=== PATIENT | male | born 1990 | race Caucasian/White ===

== ENCOUNTER → 2016-12-24 | Outpatient (CLI) | payer BC ==
[~2016-12-24] MED LIST: BENZ1TAB2 PO; DPKSR/500 PO; HALO5TAB PO; OLAN-111 PO; ZYP20 PO
[2016-12-24 17:06] LABS: BASO % 0.4 %; BASO ABS # 0.02 K/uL (0-0.2); COMPLETE YES; EOS % 1.8 %; LYMPH % 40.6 %; LYMPH ABS # 2.31 K/uL (1.2-3.4); MEAN CELL VOLUME 88.7 fL (80-100); MEAN CORPUSCULAR HEMOGLOBIN 30.2 pg (25-34); MEAN CORPUSCULAR HGB CONC 34.1 g/dl (32-36); MEAN PLATELET VOLUME 10.2 fL (7.4-10.4); MONO % 8.1 %; NEUT % 49.1 %; PLATELET COUNT 275 K/uL (130-400); RED BLOOD COUNT 4.96 M/uL (4.7-6.1); WHITE BLOOD COUNT 5.69 K/uL (4.8-10.8)
[2016-12-27 02:33] LABS: CHLAMYDIA TRACH RNA*** NOT DETECTED (NOT DETECTED); GC (NEIS GONORRHOEAE)RNA** NOT DETECTED (NOT DETECTED); HERPES SIMPLEX AB IGG-1 >5.00; HERPES SIMPLEX AB IGG-2 0.26
== END | disposition home or self-care (01) ==
LOC: C.LABBC 13:21
PROVIDERS: ATTEND Family Medicine
DX: Z00.00 Encounter for general adult medical examination without abnormal findings (principal); E03.9 Hypothyroidism, unspecified; D64.9 Anemia, unspecified

== ENCOUNTER 2022-11-12 00:16 | Inpatient (IN) ==
--- NOTE | 2022-11-12 00:30 | Emergency Department Note ---
Impression & Plan Bipolar I disorder with nazanin Admit ED Provider Note HPI: The patient is a 32-year-old male with history of bipolar disorder, who presents to the emergency department for psychiatric evaluation. Patient presents via private vehicle, he states that his parents were concerned that he was going through a manic episode. Patient states he lives in his own house with 2 r oommates and his parents came to see him this evening and had concerns and therefore brought him to the ED for assessment. On my initial evaluation the patient is alone, he tells me he is not having any suicidal or homicidal thoughts, he answers my questions appropriately but does exhibit some pressured speech. He tells me he is sleeping and he is unsure why his parents are concerned, however at times he does admit to some need for inpatient psychiatric care. He states he is taking his medications as prescribed but he is unable to tell me what they are. Patient is otherwise in no acute distress on arrival. ROS: -Psychiatric: Concern for manic episode *10 point review systems was conducted and is otherwise negative unless stated above *Outpatient medications and allergy history reviewed PE: General: Alert HEENT: Normocephalic, trachea midline Eyes: Extraocular eye movement is intact, no scleral erythema Pulmonary: Clear to auscultation bilaterally, no wheezing Cardio: Regular rate and rhythm GI: Abdomen is soft, nontender : No suprapubic tenderness MSK: No evidence of trauma or malformation of the extremities, no edema Skin: No evidence of rash Neuro: Alert, no focal deficits Psychiatric: Cooperative Medical Decision Making: Patient is cooperative on arrival here to the ED, he is displayed some manic behavior recently and parents were concerned that he might need to be evaluated as an inpatient psychiatric patient. On arrival here to the ED the patient is in no acute distress, he states he would be agreeable to inpatient care. He denies any suicidal or homicidal ideations. Medical clearance lab work was obtained, patient does have some mild hyponatremia and a mild anemia but otherwise no critical abnormalities are noted. He is hemodynamically stable here in the ED and on my reassessment he is resting comfortably. Alcohol level is negative. Patient states he is agreeable for 201 admission, he feels that he may benefit from admission as he does admit to some manic symptoms recently although he is relatively vague with the details of this, he states he has been compliant with his medications. Bed search was initiated following medical clearance, patient was accepted at [facility] for inpatient care. Patient was transferred in stable condition for further management. Diagnosis: 1. Bipolar disorder 2. Acute nazanin Disposition: Admission to [facility]. Jordan Pack DO Emergency Medicine Past Med/Surg History Social History Smoking Status: Never smoker Preferred Language: German Feels Safe at Home: Yes Allergies Allergies Allergy/AdvReac Type Severity Reaction Status Date / Time No Known Allergies Allergy Unverified 10/25/13 15:08 Home Meds Home Medications Medication Instructions Recorded Confirmed buspirone 5 mg tablet 5 mg PO BID 11/12/22 11/12/22 levothyroxine 50 mcg tablet 50 mcg PO DAILY 11/12/22 11/12/22 lorazepam 0.5 mg tablet 0.5 mg PO HS PRN Anxiety 11/12/22 11/12/22 olanzapine 5 mg tablet 5 mg PO DAILY 11/12/22 11/12/22 Previous Rx's Medication Instructions Recorded Benztropine Mesylate (Cogentin) 1 mg PO BID PRN #20 tabs 11/08/13 Benztropine Mesylate (Cogentin) 2 mg PO BID 30 days #0 tabs 11/08/13 DIVALPROEX SODIUM (Depakote 1,500 mg PO HS 30 days ##0 11/08/13 Etended-Release) HALOPERIDOL (HALDOL) 5 mg PO HS 30 days #0 tabs 11/08/13 OLANZAPINE (ZYPREXA) 20 mg PO HS 30 days #0 tabs 11/08/13 Olanzapine (Zyprexa) 5 mg PO QAM 30 days #0 tabs 11/08/13 Results & Data (ED) Vital Signs Vital Signs - 24 hr 11/12/22 00:20 11/12/22 03:38 Temperature 36.5 C Temperature Source Temporal Artery Scan Pulse Rate 101 H Pulse Rate [Finger] 78 Pulse Rhythm [Finger] Regular Respiratory Rate 18 16 Respiratory Effort / Characteristics Non-Labored Spontaneous Respiratory Depth Normal Normal Blood Pressure 147/101 H Blood Pressure [Left Arm] 149/77 H Blood Pressure Mean 116 Blood Pressure Mean [Left Arm] 101 Pulse Oximetry 99 98 Oxygen Delivery Method Room Air Room Air Sepsis New/Unexplained Change in Mental Status N/A Sepsis Action Taken by Nursing No Action Required Laboratory Data Result diagrams: 11/12/22 00:40 11/12/22 00:40 Lab Results 11/12/22 11/12/22 11/12/22 Range/Units 00:28 00:28 00:40 WBC 9.40 (4.8-10.8) K/ul RBC 4.17 L (4.63-6.08) M/uL Hgb 12.6 L (14.0-18.0) g/dl Hct 36.3 L (40.1-51.0) % MCV 87.1 (80.0-100.0) fL MCH 30.2 (25.0-34.0) pg MCHC 34.7 (32.0-36.0) g/dL RDW Std Deviation 40.9 (36.4-46.3) fL RDW Coeff of Shaista 12.9 (11.5-14.5) % Plt Count 327 (130-400) K/uL MPV 8.9 L (9.4-12.4) fL Immature Gran % (Auto) 0.5 % Neut % (Auto) 44.9 % Lymph % (Auto) 41.6 % Mineral % (Auto) 9.5 % Eos % (Auto) 3.0 % Baso % (Auto) 0.5 % Neut # (Auto) 4.22 (1.4-6.5) K/uL Lymph # (Auto) 3.91 H (1.2-3.4) K/uL Mineral # (Auto) 0.89 H (0.24-0.82) K/uL Eos # (Auto) 0.28 (0-0.50) K/uL Baso # (Auto) 0.05 (0-0.2) K/uL Immature Gran # (Auto) 0.05 H (0.00-0.02) K/uL Sodium (136-145) mmol/L Potassium (3.5-5.1) mmol/L Chloride (98-107) mmol/L Carbon Dioxide (21-32) mmol/L Anion Gap (3-11) BUN (6-23) mg/dl Creatinine (0.6-1.4) mg/dl Est Cr Clr Drug Dosing ml/min Est GFR ( Amer) ml/min Est GFR (Non-Af Amer) ml/min BUN/Creatinine Ratio (10-20) Glucose (70-99(Fasting)) mg/dl Calcium (8.5-10.1) mg/dl Total Bilirubin (0.2-1.0) mg/dl AST (13-39) U/L ALT (7-52) U/L Alkaline Phosphatase (34-104) U/L Total Protein (6.0-8.3) gm/dl Albumin (3.4-5.0) gm/dl Globulin (2.5-4.0) gm/dl Albumin/Globulin Ratio (0.9-2) TSH (0.300-4.500) uIu/ml Urine Color Yellow Urine Appearance Clear (Clear) Urine pH 7.5 (4.5-7.5) Ur Specific [place] 1.011 (1.000-1.030) Urine Protein Negative (Negative) Urine Glucose (UA) Negative (Negative) Urine Ketones Negative (Negative) Urine Blood Negative (Negative) Urine Nitrite Negative (Negative) Urine Bilirubin Negative (Negative) Urine Urobilinogen Negative (Negative) Ur Leukocyte Esterase Negative (Negative) Salicylates (3.0-30) mg/dl Urine Opiates Screen Neg (Neg) Ur Methadone, Qual Neg (Neg) Acetaminophen (10-30) ug/ml Urine Barbiturates Neg (Neg) Ur Phencyclidine (PCP) Neg (Neg) U Amphetamin/Meth Scrn Neg (Neg) MDMA (Ecstasy) Screen Neg (Neg) U Benzodiazepines Scrn Neg (Neg) Ur Cocaine Metabolite Neg (Neg) U Marijuana (THC) Screen Neg (Neg) Ethyl Alcohol mg/dL (<10.0) mg/dl SARS-CoV-2, RNA, NAAT (NEGATIVE) 11/12/22 11/12/22 11/12/22 Range/Units 00:40 00:40 00:40 WBC (4.8-10.8) K/ul RBC (4.63-6.08) M/uL Hgb (14.0-18.0) g/dl Hct (40.1-51.0) % MCV (80.0-100.0) fL MCH (25.0-34.0) pg MCHC (32.0-36.0) g/dL RDW Std Deviation (36.4-46.3) fL RDW Coeff of Shaista (11.5-14.5) % Plt Count (130-400) K/uL MPV (9.4-12.4) fL Immature Gran % (Auto) % Neut % (Auto) % Lymph % (Auto) % Mineral % (Auto) % Eos % (Auto) % Baso % (Auto) % Neut # (Auto) (1.4-6.5) K/uL Lymph # (Auto) (1.2-3.4) K/uL Mineral # (Auto) (0.24-0.82) K/uL Eos # (Auto) (0-0.50) K/uL Baso # (Auto) (0-0.2) K/uL Immature Gran # (Auto) (0.00-0.02) K/uL Sodium 130 L (136-145) mmol/L Potassium 3.8 (3.5-5.1) mmol/L Chloride 96 L (98-107) mmol/L Carbon Dioxide 24 (21-32) mmol/L Anion Gap 10 (3-11) BUN 13 (6-23) mg/dl Creatinine 0.70 (0.6-1.4) mg/dl Est Cr Clr Drug Dosing 159.3 ml/min Est GFR ( Amer) 146.8 ml/min Est GFR (Non-Af Amer) 126.6 ml/min BUN/Creatinine Ratio 18.6 (10-20) Glucose 134 H (70-99(Fasting)) mg/dl Calcium 8.3 L (8.5-10.1) mg/dl Total Bilirubin 0.3 (0.2-1.0) mg/dl AST 22 (13-39) U/L ALT 15 (7-52) U/L Alkaline Phosphatase 45 (34-104) U/L Total Protein 6.8 (6.0-8.3) gm/dl Albumin 4.4 (3.4-5.0) gm/dl Globulin 2.4 L (2.5-4.0) gm/dl Albumin/Globulin Ratio 1.8 (0.9-2) TSH 2.662 (0.300-4.500) uIu/ml Urine Color Urine Appearance (Clear) Urine pH (4.5-7.5) Ur Specific [place] (1.000-1.030) Urine Protein (Negative) Urine Glucose (UA) (Negative) Urine Ketones (Negative) Urine Blood (Negative) Urine Nitrite (Negative) Urine Bilirubin (Negative) Urine Urobilinogen (Negative) Ur Leukocyte Esterase (Negative) Salicylates < 3.0 L (3.0-30) mg/dl Urine Opiates Screen (Neg) Ur Methadone, Qual (Neg) Acetaminophen < 3 L (10-30) ug/ml Urine Barbiturates (Neg) Ur Phencyclidine (PCP) (Neg) U Amphetamin/Meth Scrn (Neg) MDMA (Ecstasy) Screen (Neg) U Benzodiazepines Scrn (Neg) Ur Cocaine Metabolite (Neg) U Marijuana (THC) Screen (Neg) Ethyl Alcohol mg/dL (<10.0) mg/dl SARS-CoV-2, RNA, NAAT (NEGATIVE) 11/12/22 11/12/22 Range/Units 00:40 00:40 WBC (4.8-10.8) K/ul RBC (4.63-6.08) M/uL Hgb (14.0-18.0) g/dl Hct (40.1-51.0) % MCV (80.0-100.0) fL MCH (25.0-34.0) pg MCHC (32.0-36.0) g/dL RDW Std Deviation (36.4-46.3) fL RDW Coeff of Shaista (11.5-14.5) % Plt Count (130-400) K/uL MPV (9.4-12.4) fL Immature Gran % (Auto) % Neut % (Auto) % Lymph % (Auto) % Mineral % (Auto) % Eos % (Auto) % Baso % (Auto) % Neut # (Auto) (1.4-6.5) K/uL Lymph # (Auto) (1.2-3.4) K/uL Mineral # (Auto) (0.24-0.82) K/uL Eos # (Auto) (0-0.50) K/uL Baso # (Auto) (0-0.2) K/uL Immature Gran # (Auto) (0.00-0.02) K/uL Sodium (136-145) mmol/L Potassium (3.5-5.1) mmol/L Chloride (98-107) mmol/L Carbon Dioxide (21-32) mmol/L Anion Gap (3-11) BUN (6-23) mg/dl Creatinine (0.6-1.4) mg/dl Est Cr Clr Drug Dosing ml/min Est GFR ( Amer) ml/min Est GFR (Non-Af Amer) ml/min BUN/Creatinine Ratio (10-20) Glucose (70-99(Fasting)) mg/dl Calcium (8.5-10.1) mg/dl Total Bilirubin (0.2-1.0) mg/dl AST (13-39) U/L ALT (7-52) U/L Alkaline Phosphatase (34-104) U/L Total Protein (6.0-8.3) gm/dl Albumin (3.4-5.0) gm/dl Globulin (2.5-4.0) gm/dl Albumin/Globulin Ratio (0.9-2) TSH (0.300-4.500) uIu/ml Urine Color Urine Appearance (Clear) Urine pH (4.5-7.5) Ur Specific [place] (1.000-1.030) Urine Protein (Negative) Urine Glucose (UA) (Negative) Urine Ketones (Negative) Urine Blood (Negative) Urine Nitrite (Negative) Urine Bilirubin (Negative) Urine Urobilinogen (Negative) Ur Leukocyte Esterase (Negative) Salicylates (3.0-30) mg/dl Urine Opiates Screen (Neg) Ur Methadone, Qual (Neg) Acetaminophen (10-30) ug/ml Urine Barbiturates (Neg) Ur Phencyclidine (PCP) (Neg) U Amphetamin/Meth Scrn (Neg) MDMA (Ecstasy) Screen (Neg) U Benzodiazepines Scrn (Neg) Ur Cocaine Metabolite (Neg) U Marijuana (THC) Screen (Neg) Ethyl Alcohol mg/dL < 10.0 (<10.0) mg/dl SARS-CoV-2, RNA, NAAT NEGATIVE (NEGATIVE) Discharge Plan Visit Data Chief Complaint: Mental Health Evaluation Stated Complaint: MENTAL HEALTH EVAL/PARENTS + ROOMMATES WORRIED ED Provider: Jordan Pack Discharge Problem: Bipolar I disorder with nazanin Forms Stand Alone Forms: [facility], Suicide Prevention Resources Prescriptions Prescriptions: No Action DIVALPROEX SODIUM (Depakote Etended-Release) 500 MG [id number] 1,500 mg PO HS 30 Days Qty: 0 0RF HALOPERIDOL (HALDOL) 5 MG tablet 5 mg PO HS 30 Days Qty: 0 0RF OLANZAPINE (ZYPREXA) 20 MG tablet 20 mg PO HS 30 Days Qty: 0 0RF Olanzapine (Zyprexa) 5 MG tablet 5 mg PO QAM 30 Days Qty: 0 0RF Benztropine Mesylate (Cogentin) 2 MG tablet 1 mg PO BID PRNQty: 20 0RF Benztropine Mesylate (Cogentin) 2 MG tablet 2 mg PO BID 30 Days Qty: 0 0RF buspirone 5 mg tablet 5 mg PO BID olanzapine 5 mg tablet 5 mg PO DAILY lorazepam 0.5 mg tablet 0.5 mg PO HS PRN (Reason: Anxiety) levothyroxine 50 mcg tablet 50 mcg PO DAILY Referrals Referrals: PCP,NO [Primary Care Provider] -
[2022-11-12 00:48] LABS: Appearance Urine Clear (Clear); Bilirubin Urine Negative (Negative); Blood Urine Negative (Negative); Color Urine Yellow; Glucose Urine UA Negative (Negative); Ketones Urine Negative (Negative); Leukocyte Esterase Urine Negative (Negative); Nitrite Urine Negative (Negative); Protein Urine Negative (Negative); Specific Gravity Urine 1.011 (1.000-1.030); Urobilinogen Urine Negative (Negative); pH Urine 7.5 (4.5-7.5)
[2022-11-12 01:02] LABS: Basophils # (auto) 0.05 K/uL (0-0.2); Basophils % (auto) 0.5 %; Eosinophils # (auto) 0.28 K/uL (0-0.50); Hematocrit (blood only) 36.3 % (40.1-51.0); Hemoglobin 12.6 g/dl (14.0-18.0); Immature Granulocytes # (auto) 0.05 K/uL (0.00-0.02); Immature Granulocytes % (auto) 0.5 %; Lymphocytes # (auto) 3.91 K/uL (1.2-3.4); Lymphocytes % (auto) 41.6 %; Mean Corpuscular Hemoglobin 30.2 pg (25.0-34.0); Mean Corpuscular Hgb Conc 34.7 g/dL (32.0-36.0); Mean Corpuscular Volume 87.1 fL (80.0-100.0); Mean Platelet Volume 8.9 fL (9.4-12.4); Monocytes # (auto) 0.89 K/uL (0.24-0.82); Monocytes % (auto) 9.5 %; Neutrophils # (auto) 4.22 K/uL (1.4-6.5); Neutrophils % (auto) 44.9 %; Platelet Count 327 K/uL (130-400); RDW Coefficient of Variation 12.9 % (11.5-14.5); RDW Standard Deviation 40.9 fL (36.4-46.3); Red Blood Count 4.17 M/uL (4.63-6.08)
[2022-11-12 01:19] LABS: Amphetamines+Metham, Urine Neg (Neg); Barbiturates, Urine Neg (Neg); Benzodiazepine, Urine Neg (Neg); Cocaine, Urine Neg (Neg); MDMA (Ecstacy), Urine Neg (Neg); Methadone, Urine Neg (Neg); Opiate, Urine Neg (Neg); Phencyclidine, Urine Neg (Neg)
[2022-11-12 01:24] LABS: Acetaminophen < 3 ug/ml (10-30); Albumin Globulin Ratio 1.8 (0.9-2); Albumin Level 4.4 gm/dl (3.4-5.0); BUN Creatinine Ratio 18.6 (10-20); Bilirubin,Total 0.3 mg/dl (0.2-1.0); Calcium 8.3 mg/dl (8.5-10.1); Creatinine Clr Calc Pharmacy 159.3 ml/min; Est GFR (African American) 146.8 ml/min; Est GFR (Non-African American) 126.6 ml/min; Globulin 2.4 gm/dl (2.5-4.0); Potassium 3.8 mmol/L (3.5-5.1); Salicylate < 3.0 mg/dl (3.0-30); Total Protein 6.8 gm/dl (6.0-8.3)
[2022-11-12] MEDS ORDERED: ACETAMINOPHEN 325 MG TAB PO PRN (03:51)
[2022-11-12] MEDS ORDERED: hydrOXYzine HCl 25 MG TAB PO PRN (03:51)
[2022-11-12] MEDS ORDERED: SODIUM CHLORIDE 0.65% NA SOLN 45 ML (OCEAN) PRN (03:51)
[2022-11-12] MEDS ORDERED: MAGNESIUM HYDROXIDE SUSP 30 ML UDC PO PRN (03:51)
[2022-11-12] MEDS ORDERED: BISMUTH SUBSALICYLATE LIQD 236 ML PO PRN (03:51)
[2022-11-12] MEDS ORDERED: ALUMINUM/MAGNESIUM SUSP 30 ML UDC PO PRN (03:51)
[2022-11-12] MEDS ORDERED: haloperidoL 5 MG TAB PO PRN (04:29)
[2022-11-12] MEDS ORDERED: LORazepam 1 MG TAB PO PRN (04:32)
[2022-11-12] MEDS ORDERED: BENZTROPINE MESYLATE 1 MG TAB PO PRN (13:07)
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
[2022-11-12] MEDS: OLANZapine 10 MG TAB PO SCH (20:36)
[2022-11-12] MEDS: DIVALPROEX EXTENDED RELEASE 500 MG TAB PO SCH (20:36)
[2022-11-13 07:59] LABS: Chol HDL Ratio 3.1 (0-5)
[2022-11-13] MEDS: LEVOTHYROXINE SODIUM 50 MCG TABLET PO SCH (08:20)
[2022-11-13] MEDS: OLANZapine 5 MG TABLET PO SCH (08:20)
--- NOTE | 2022-11-13 11:45 | Psychiatric Progress Note ---
Date of Service November 13, 2022 Impression / Recommendations Impression 32 yo male with hx of bipolar disorder, last hospitalization in 2013 precipitated by substance use, no known recent use, worsening nazanin for >1 week, no floridly delusional and paranoid re: his parents and housemates being imposters. MNPR due to severity of psychosis/paranoia. 11/13/22: remains disorganized, minimizing symptoms as focussed on discharge, still not allowing team communication with supports. (1) Bipolar I disorder with nazanin: Plan 11/13/22: reviewed labs, Depakote level not 24 hr trough but therapeutic range. Patient is having benefit from Zyprexa but not stable for discharge. He is signing a 72 hr. notice and agreeable to stay for additional monitoring and treatment for now. Repeat sodium as rec. labs for PANS as a contributing factor to his psychosis given proximity to dental procedure. He is signing a release for dentist/oral surgeon so we can get records to see what anesthesia was received. If ASO elevated and anti-DNAse B + may benefit from longer course of antibiotics. 11/12/22: The patient was admitted to the [facility]) on q15 min checks (behavioral with suicide precautions) for safety. The patient will participate in group, recreational, and milieu therapies and will be offered additional individual and family sessions as clinically appropriate. Will check Depakote level in am with fasting labs though may not be accurate if missed dose. Will offer prn Haldol and Ativan in addition to home scheduled Zyprexa pending coordination of care with outpatient psychiatrist. Inventory Assets Strengths: family support, maintained out of hospital for extended period Needs: normalize sleep, outpatient therapy Suicide Risk Level Suicide Risk Level: Low (q15 min observation checks) Risk Factors Assessment Male: Yes : Yes Do You Have Access To A Gun?: No Mental Health Diagnoses: Yes Substance Use Disorders: No Previous Attempt: No Previous Psychiatric Hospitalization: Yes Protective Factors Assessment Employed: No Stable Relationships: Yes Supportive Family: Yes Interval History Identifying Information DELL LARSON is a 32-year-old M who currently lives in [place], has a history of bipolar disorder, and was admitted on 11/12/22 03:51 on a 201 voluntary commitment for delusional and manic behavior. Chief Complaint "I didn't really believe that stuff, I just want out of here/to go home." Review of Systems Sleep Information Total Hours of Sleep: 10.5 Sleep Comments: new admit Meal Information Percent Meal Consumed - Breakfast: 100 Percent Meal Consumed - Lunch: 0 Percent Meal Consumed - Dinner: 75 Subjective Subjective Patient was seen & assessed and interval progress reviewed with nursing and soci al work. Patient is still refusing to sign an CHING for his parents or partner. He recalls the statements he made about shape shifters and locking self in the bathroom and attributes to a panic attack. Reviewed concern about the acute onset of his disorganization/poor sleep and he is minimizing though also dates worsening to a dental procedure. He rated his mood as 6 and bored. Sleep much improved. Physical Exam Psychiatric Orientation: alert and oriented to person Apperance: + disheveled Eye Contact: + poor eye contact Motor Behavior: + abnormal motor movements (restless) Speech: + abnormal rate/rhythm/volume of speech Affect: + blunted affect Mood: + dysphoric mood Thought Process: + looseness of associations Thought Content: + paranoid; no delusions (denies but mainly as focussed on discharge) Suicidal Thoughts: denies suicidal thoughts Homicidal Thoughts: denies homicidal thoughts Hallucinations: no auditory hallucinations and no visual hallucinations Cognition: language grossly intact; + attention not intact Estimated Intelligence: consistent with education level Insight: + poor insight Judgement: + poor judgement Vital Signs (Past 24 Hours) Last Vital Signs Temp 36.4 C L 11/13/22 06:32 Pulse 103 H 11/13/22 06:33 Resp 16 11/13/22 06:32 BP 132/78 11/13/22 06:33 Pulse Ox 98 11/12/22 03:38 O2 Del Method 11/12/22 03:38 Results & Data ([facility]) Laboratory Results Laboratory Results - last 24 hr 11/13/22 11/13/22 07:10 07:10 Fasting Glucose 102 H Triglycerides 113 Cholesterol 135 LDL Cholesterol, Calc 69 VLDL Cholesterol, Calc 23 HDL Cholesterol 43 Cholesterol/HDL Ratio 3.1 Valproic Acid 110 H Current Inpatient Medications Current Inpatient Medications: Current Inpatient Medications Acetaminophen (Acetaminophen 325 Mg Tab) 650 mg PO Q4H PRN PRN Reason: Headache or Minor Fever Stop: 12/12/22 03:50 Al Hydrox/Mg Hydrox/Simethicone (Aluminum/Magnesium Susp 30 Ml Udc) 30 ml PO Q4H PRN PRN Reason: GI Upset Stop: 12/12/22 03:50 Benztropine Mesylate (Benztropine Mesylate 1 Mg Tab) 1 mg PO Q6 PRN PRN Reason: Muscle Spasm Stop: 12/12/22 13:06 Bismuth Subsalicylate (Bismuth Subsalicylate Liqd 236 Ml) 15 ml PO PRN PRN PRN Reason: Loose Stool Stop: 12/12/22 03:50 Divalproex Sodium (Divalproex Extended Release 500 Mg Tab) 1,500 mg PO HS TIERRA Stop: 12/12/22 21:59 Last Admin: 11/12/22 20:36 Dose: 1,500 mg Haloperidol (Haloperidol 5 Mg Tab) 5 mg PO Q6 PRN PRN Reason: Anxiety/Agitation Stop: 12/12/22 04:28 Last Admin: 11/12/22 08:33 Dose: 5 mg Hydroxyzine HCl (Hydroxyzine Hcl 25 Mg Tab) 50 mg PO HSZ PRN PRN Reason: Insomnia Stop: 12/12/22 03:50 Hydroxyzine HCl (Hydroxyzine Hcl 25 Mg Tab) 25 mg PO Q4H PRN PRN Reason: Anxiety Stop: 12/12/22 03:50 Levothyroxine Sodium (Levothyroxine Sodium 50 Mcg Tablet) 50 mcg PO DAILY TIERRA Stop: 12/13/22 07:59 Last Admin: 11/13/22 08:20 Dose: 50 mcg Lorazepam (Lorazepam 1 Mg Tab) 1 mg PO Q6 PRN PRN Reason: Anxiety Stop: 12/12/22 04:31 Last Admin: 11/12/22 08:33 Dose: 1 mg Magnesium Hydroxide (Magnesium Hydroxide Susp 30 Ml Udc) 30 ml PO DAILY PRN PRN Reason: Constipation Stop: 12/12/22 03:50 Olanzapine (Olanzapine 5 Mg Tablet) 5 mg PO DAILY TIERRA Stop: 12/13/22 08:59 Last Admin: 11/13/22 08:20 Dose: 5 mg Olanzapine (Olanzapine 10 Mg Tab) 10 mg PO HS TIERRA Stop: 12/12/22 21:59 Last Admin: 11/12/22 20:36 Dose: 10 mg Sodium Chloride (Sodium Chloride 0.65% Na Soln 45 Ml ([place])) 1 - 2 sprays NA PRN PRN PRN Reason: Nasal Dryness/Congestion Stop: 12/12/22 03:50 Post Discharge Appointments Primary Care Physician Name Of Family Doctor: No PCP
[2022-11-13] MEDS: DIVALPROEX EXTENDED RELEASE 500 MG TAB PO SCH (20:29)
[2022-11-13] MEDS: OLANZapine 10 MG TAB PO SCH (20:29)
[2022-11-14] MEDS: hydrOXYzine HCl 25 MG TAB PO PRN ×2 (00:40→22:22)
[2022-11-14] MEDS: LEVOTHYROXINE SODIUM 50 MCG TABLET PO SCH (08:42)
[2022-11-14] MEDS: OLANZapine 5 MG TABLET PO SCH (08:42)
--- NOTE | 2022-11-14 13:13 | Psychiatric Progress Note ---
Date of Service November 14, 2022 Impression / Recommendations Impression 32 yo male with hx of bipolar disorder, last hospitalization in 2013 precipitated by substance use, no known recent use, worsening nazanin for >1 week, no floridly delusional and paranoid re: his parents and housemates being imposters. MNPR due to severity of psychosis/paranoia. 11/14/22: improving, am sedation, refusing to rescind 72 hr notice but agreeable to ongoing stay at this point (1) Bipolar I disorder with nazanin: Plan 11/14/22: will begin Zyprexa 15 mg hs starting tonight and d/c am dose of Zyprexa. Family meeting with mother. Strep labs for PANS still pending. 11/13/22: reviewed labs, Depakote level not 24 hr trough but therapeutic range. Patient is having benefit from Zyprexa but not stable for discharge. He is signing a 72 hr. notice and agreeable to stay for additional monitoring and treatment for now. Repeat sodium as rec. labs for PANS as a contributing factor to his psychosis given proximity to dental procedure. He is signing a release for dentist/oral surgeon so we can get records to see what anesthesia was received. If ASO elevated and anti-DNAse B + may benefit from longer course of antibiotics. 11/12/22: [facility] on q15 min checks (behavioral with suicide precautions) for safety. The patient will participate in group, recreational, and milieu therapies and will be offered additional individual and family sessions as clinically appropriate. Will check Depakote level in am with fasting labs though may not be accurate if missed dose. Will offer prn Haldol and Ativan in addition to home scheduled Zyprexa pending coordination of care with outpatient psychiatrist. Inventory Assets Strengths: family support, maintained out of hospital for extended period Needs: normalize sleep, outpatient therapy Suicide Risk Level Suicide Risk Level: Low (q15 min observation checks) Risk Factors Assessment Male: Yes : Yes Do You Have Access To A Gun?: No Mental Health Diagnoses: Yes Substance Use Disorders: No Previous Attempt: No Previous Psychiatric Hospitalization: Yes Protective Factors Assessment Employed: No Stable Relationships: Yes Supportive Family: Yes Interval History Identifying Information DELL LARSON is a 32-year-old M who currently lives in [place], has a history of bipolar disorder, and was admitted on 11/12/22 03:51 on a 201 voluntary commitment for delusional and manic behavior. Chief Complaint "I'm fine staying tonight but this isn't like my last episode, lets call it that, and I'd still like to leave". Review of Systems Sleep Information Total Hours of Sleep: 6 Sleep Comments: new admit Meal Information Percent Meal Consumed - Breakfast: 100 Percent Meal Consumed - Lunch: 100 Percent Meal Consumed - Dinner: 25 Subjective Subjective Patient was seen & assessed and interval progress reviewed with treatment team. Patient much more organized in group this am, able to recite thought modeling. Speech remains fast at times but was more receptive to allow communication with mother. They recognize he is not yet at baseline but were educated about [place] health [place]. Has been napping after am Zyprexa and agreeable to shift to hs. "I don't believe any of that stuff about my parents anymore, I realize I probably didn't have the most insight into what was happening but wasn't as bad as before." Physical Exam Psychiatric Orientation: alert Apperance: appropriately groomed Eye Contact: good eye contact Motor Behavior: no abnormal motor movements Speech: + abnormal rate/rhythm/volume of speech (hyperverbal) Affect: euthymic affect Mood: + anxious mood Thought Process: + circumstantial thought process Thought Content: reality based without delusions Suicidal Thoughts: denies suicidal thoughts Homicidal Thoughts: denies homicidal thoughts Hallucinations: no auditory hallucinations and no visual hallucinations Cognition: attention grossly intact and language grossly intact Estimated Intelligence: consistent with education level Insight: + limited insight Judgement: + limited judgement Vital Signs (Past 24 Hours) Last Vital Signs Temp 36.5 C 11/14/22 06:33 Pulse 76 11/14/22 06:34 Resp 16 11/14/22 06:33 BP 124/83 11/14/22 06:34 Pulse Ox 98 11/12/22 03:38 O2 Del Method 11/12/22 03:38 Results & Data ([facility]) Current Inpatient Medications Current Inpatient Medications: Current Inpatient Medications Acetaminophen (Acetaminophen 325 Mg Tab) 650 mg PO Q4H PRN PRN Reason: Headache or Minor Fever Stop: 12/12/22 03:50 Al Hydrox/Mg Hydrox/Simethicone (Aluminum/Magnesium Susp 30 Ml Udc) 30 ml PO Q4H PRN PRN Reason: GI Upset Stop: 12/12/22 03:50 Benztropine Mesylate (Benztropine Mesylate 1 Mg Tab) 1 mg PO Q6 PRN PRN Reason: Muscle Spasm Stop: 12/12/22 13:06 Bismuth Subsalicylate (Bismuth Subsalicylate Liqd 236 Ml) 15 ml PO PRN PRN PRN Reason: Loose Stool Stop: 12/12/22 03:50 Divalproex Sodium (Divalproex Extended Release 500 Mg Tab) 1,500 mg PO HS TIERRA Stop: 12/12/22 21:59 Last Admin: 11/13/22 20:29 Dose: 1,500 mg Haloperidol (Haloperidol 5 Mg Tab) 5 mg PO Q6 PRN PRN Reason: Anxiety/Agitation Stop: 12/12/22 04:28 Last Admin: 11/12/22 08:33 Dose: 5 mg Hydroxyzine HCl (Hydroxyzine Hcl 25 Mg Tab) 50 mg PO HSZ PRN PRN Reason: Insomnia Stop: 12/12/22 03:50 Last Admin: 11/14/22 00:40 Dose: 50 mg Hydroxyzine HCl (Hydroxyzine Hcl 25 Mg Tab) 25 mg PO Q4H PRN PRN Reason: Anxiety Stop: 12/12/22 03:50 Levothyroxine Sodium (Levothyroxine Sodium 50 Mcg Tablet) 50 mcg PO DAILYBB TIERRA Stop: 12/13/22 07:59 Last Admin: 11/14/22 08:42 Dose: 50 mcg Lorazepam (Lorazepam 1 Mg Tab) 1 mg PO Q6 PRN PRN Reason: Anxiety Stop: 12/12/22 04:31 Last Admin: 11/12/22 08:33 Dose: 1 mg Magnesium Hydroxide (Magnesium Hydroxide Susp 30 Ml Udc) 30 ml PO DAILY PRN PRN Reason: Constipation Stop: 12/12/22 03:50 Sodium Chloride (Sodium Chloride 0.65% Na Soln 45 Ml ([place])) 1 - 2 sprays NA PRN PRN PRN Reason: Nasal Dryness/Congestion Stop: 12/12/22 03:50 Mental Health & Subst Abuse Tx Psychiatrist Name of Psychiatrist: [facility] Dr. Gandara Psychiatrist's Date of Appointment with Psychiatrist: 11/19/22 Time of Appointment with Psychiatrist: 3pm Psychiatric Appointment Comment: [address] [place] [address] Post Discharge Appointments Primary Care Physician Name Of Family Doctor: No PCP Contact Information Discharge Discharge Address: [address] [place] [address], [place] [address]
[2022-11-14] MEDS: DIVALPROEX EXTENDED RELEASE 500 MG TAB PO SCH (20:37)
[2022-11-14] MEDS ORDERED: OLANZapine 5 MG TABLET PO SCH (22:00)
[2022-11-15] MEDS: LEVOTHYROXINE SODIUM 50 MCG TABLET PO SCH (09:02)
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
[2022-11-20 18:32] LABS: Anti-DNASE B Ab <95 U/mL (<301)
== END 2022-11-15 12:25 | disposition home or self-care (01) | DRG 885 ==
LOC: ED 00:16 → 3S 03:51
DX: F31.10 Bipolar disorder, current episode manic without psychotic features, unspecified; Z79.899 Other long term (current) drug therapy